=== PATIENT | male | born 1980 | race Caucasian/White ===

== ENCOUNTER 2023-09-05 22:42 | Emergency (ER) | payer BC ==
[~2023-09-05] VITALS: Ht 188 cm; Wt 104.3 kg
[2023-09-05 22:47] VITALS: BP 125/83; PULSE 95; RESP 16; TEMP 98.1; O2SAT 97
[2023-09-05] MEDS ORDERED: NAPR-54 PO (23:27)
[2023-09-06 00:17] VITALS: BP 139/77; PULSE 81; RESP 16; TEMP 97.5; O2SAT 98
== END 2023-09-06 00:17 | disposition home or self-care (01) ==
LOC: MED 22:42
DX: S92.511A Displaced fracture of proximal phalanx of right lesser toe(s), initial encounter for closed fracture (principal); Z98.890 Other specified postprocedural states; Z79.1 Long term (current) use of non-steroidal anti-inflammatories (NSAID); W22.8XXA Striking against or struck by other objects, initial encounter; Y92.89 Other specified places as the place of occurrence of the external cause; Y93.89 Activity, other specified; Y99.8 Other external cause status
CPT/HCPCS: 28515; 73660; 99284; Q0092